=== PATIENT | female | born 1980 | race Caucasian/White ===

== ENCOUNTER 2018-02-09 18:39 | Emergency (ER) | payer MEDICARE | END 2018-02-09 19:45 | LOC: D.ER 18:39 | DX: L03.112 Cellulitis of left axilla (principal) ==

== ENCOUNTER 2018-02-11 17:20 | Emergency (ER) | payer MEDICARE | END 2018-02-11 18:56 | LOC: D.ER 17:20 | DX: L03.116 Cellulitis of left lower limb (principal); M79.672 Pain in left foot; F17.200 Nicotine dependence, unspecified, uncomplicated ==